=== PATIENT | male | born 1980 | race Hispanic/Latino ===

== ENCOUNTER 2020-02-06 09:08 | Emergency (ER) | payer SELFPAY ==
[2020-02-06] MEDS ORDERED: Iopamidol 370 76% 100 ML VIAL ONE (09:12)
[2020-02-06 10:14] LABS: #Lymphocytes 2.2 thou/uL (1.20-3.40); #Neutrophils 9.1 thou/uL (1.40-6.50); %Basophils 0.1 % (0.0-1.0); %Eosinophils 0.3 % (0.0-10.0); %Lymphocytes 17.5 % (21.0-51.0); %Monocytes 8.4 % (0.0-10.0); %Neutrophils 73.7 % (42.0-75.0); Hemoglobin 15.5 g/dL (14.0-18.0); Mean Corpuscular HGB CONC 35.6 g/dL (32.0-36.0); Mean Corpuscular Hemoglobin 32.2 pg (27.0-31.0); Mean Corpuscular Volume 90.4 fL (78.0-98.0); Mean Platelet Volume 7.5 fL (7.4-10.4); Platelet Count 290 thou/uL (130-400); RBC Distribution Width 11.8 % (11.5-14.5); Red Blood Cell (RBC) Count 4.83 mill/uL (4.70-6.10); White Blood Cell (WBC) Count 12.4 thou/uL (4.8-10.8)
[2020-02-06] MEDS ORDERED: Clindamycin/D5W 900 mg/50 ml Premix Bag ONE (10:16)
[2020-02-06] MEDS ORDERED: Fentanyl 100 MCG/2 ML VIAL ONE (10:16)
[2020-02-06] MEDS ORDERED: Ondansetron PF 4 MG/2 ML Vial ONE (10:16)
[2020-02-06] MEDS ORDERED: Dexamethasone 4 mg/ml Vial ONE (10:23)
[2020-02-06 10:41] LABS: ALT (SGPT) 36 U/L (8-55); AST (SGOT) 32 U/L (5-34); Alkaline Phosphatase 122 U/L (40-110); Anion Gap 16 mmol/L (10-20); BUN (Urea Nitrogen) 9 mg/dL (8.9-20.6); Bilirubin, Total 0.9 mg/dL (0.2-1.2); Calc. Creatinine Clearance 0 mL/min (70-130); Calcium 9.2 mg/dL (7.8-10.44); Carbon Dioxide 22 mmol/L (22-29); Chloride 99 mmol/L (98-107); Globulin 4.7 g/dL (2.4-3.5); Glucose 344 mg/dL (70-105); Potassium 3.9 mmol/L (3.5-5.1); Protein, Total 8.7 g/dL (6.0-8.3); Sodium 133 mmol/L (136-145)
--- NOTE | 2020-02-06 12:25 | CT ---
SOFT TISSUE NECK CT WITH CONTRAST: Date: 02/06/2020 HISTORY: Difficulty swallowing. Right tonsillar swelling. COMPARISON: None. FINDINGS: Visualized brain parenchyma does not demonstrate any abnormal enhancement. Adequate aeration of the ethmoid air cells. There is left maxillary sinus disease. There is sclerosis and opacification of the mastoid air cells, likely due to chronic process. Aerodigestive tract appears to be narrowed. There is asymmetric edema involving the posterior right n asopharynx, oral cavity, and hypopharynx. At the right tonsillar pillar, there is a 1.2 x 1.0 cm hypo dense lesion with incomplete peripheral enhancement. A developing right peritonsillar abscess is susp ected. Epiglottis has a normal caliber. Preepiglottic fat is preserved. The supraglottic, glottic, and subgl ottic larynx are unremarkable. No acute abnormality in the upper mediastinum and lung apices. Cervical spine vertebral body height is maintained. No fracture. Grossly, the great vessels of the neck are patent. There is an enlarged right Level II lymph node, presumed to be reactive, measuring 2.0 x 1.2 cm. Hay tional scattered mildly enlarged lymph nodes are noted in the right neck. Symmetric attenuation of the salivary glands. Unremarkable thyroid gland. IMPRESSION: 1. Right peritonsillar abscess. 2. Enlarged, presumed reactive right neck lymph nodes. POS: [facility]
== END 2020-02-06 14:20 | disposition home or self-care (01) ==
LOC: ERS 09:08
DX: J36 Peritonsillar abscess (principal); R59.9 Enlarged lymph nodes, unspecified; E11.65 Type 2 diabetes mellitus with hyperglycemia; F17.200 Nicotine dependence, unspecified, uncomplicated
CPT/HCPCS: 36416; 70491; 80053; 85025; 96365; 96375; J1100; J2405; J3010; J3490; Q9967

== ENCOUNTER 2023-07-21 13:57 | Emergency (ER) | payer SELFPAY ==
[2023-07-21 14:30] LABS: #Basophils 0.05 10x3/uL (0.0-0.2); %Basophils 0.5 % (0.0-1.0); %Eosinophils 3.3 % (0.0-10.0); %Lymphocytes 24.4 % (21.0-51.0); %Monocytes 6.5 % (0.0-10.0); Hematocrit 33.3 % (42.0-52.0); Hemoglobin 11.3 g/dL (14.0-18.0); Mean Corpuscular HGB CONC 33.9 g/dL (32.0-36.0); Mean Corpuscular Volume 85.6 fL (78.0-98.0); Mean Platelet Volume 9.8 fL (7.4-10.4); Platelet Count 582 10x3/uL (130-400); RBC Distribution Width 14.6 % (11.5-14.5); Red Blood Cell (RBC) Count 3.89 mill/uL (4.70-6.10)
[2023-07-21 14:44] LABS: ALT (SGPT) 21 U/L (8-55); AST (SGOT) 24 U/L (5-34); Albumin 2.9 g/dL (3.5-5.0); Alkaline Phosphatase 189 U/L (40-110); Anion Gap 14 mmol/L (10-20); BUN (Urea Nitrogen) 26 mg/dL (8.9-20.6); Bilirubin, Total 0.2 mg/dL (0.2-1.2); Calc. Creatinine Clearance 0 mL/min (70-130); Calcium 9.3 mg/dL (7.8-10.44); Carbon Dioxide 19 mmol/L (22-29); Chloride 101 mmol/L (98-107); Estimated GFR 45; Glucose 622 mg/dL (70-105); Potassium 4.5 mmol/L (3.5-5.1); Protein, Total 8.9 g/dL (6.0-8.3); Sodium 129 mmol/L (136-145)
[2023-07-21] MEDS ORDERED: HumaLOG 300 UNITS/3 ML VIAL ONE (15:31)
[2023-07-21] MEDS ORDERED: Insulin Regular, Human 100 UNIT/ML 10 ML VIAL ONE (15:38)
[2023-07-21 16:24] LABS: Bilirubin Negative (Negative); Blood, Urine 1+ (Negative); CAUTI Indications for Culture Dysuria,urgency,freq; Glucose, Urine (Dipstick) Greater than 1000 mg/dL (Negative); Ketone, Urine Negative (Negative); Leukocyte 500 Leu/uL (Negative); Nitrite Negative (Negative); Protein, Urine (Dipstick) 100 mg/dL (Neg-Trace); Specific Gravity, Urine 1.017 (1.002-1.036); Squamous Epithelial 0-3 HPF (0-3); Urobilinogen Normal mg/dL (Less than 2); WBC/HPF Greater than 50 HPF (0-3)
[2023-07-21 16:27] LABS: Bacteria/HPF 1+ HPF (None Seen); Clarity Cloudy (Clear)
[2023-07-21 16:29] LABS: Urine Culture Reflex Yes Yes
== END 2023-07-21 18:01 | disposition home or self-care (01) ==
LOC: ERS 13:57
DX: S40.812A Abrasion of left upper arm, initial encounter (principal); S40.811A Abrasion of right upper arm, initial encounter; S80.812A Abrasion, left lower leg, initial encounter; S80.811A Abrasion, right lower leg, initial encounter; E11.65 Type 2 diabetes mellitus with hyperglycemia; X58.XXXA Exposure to other specified factors, initial encounter; Z87.891 Personal history of nicotine dependence
CPT/HCPCS: 36415; 80053; 81001; 82010; 85025; 87077; 87086; 87186; 99284; J1815

== ENCOUNTER 2023-08-05 11:27 | Inpatient (IN) | payer MEDICARE, SELFPAY ==
[2023-08-05] MEDS ORDERED: Ketorolac Tromethamine 30 MG (1 mL) VIAL ONE (11:44)
[2023-08-05] MEDS ORDERED: Ondansetron PF 4 MG/2 ML Vial ONE (11:45)
[2023-08-05] MEDS ORDERED: cefTRIAXone (ROCEPHIN) 2 GM VIAL ONE (11:45)
[2023-08-05 12:52] LABS: Prothrombin Time 12.9 sec (12.0-14.7)
[2023-08-05 12:54] LABS: PTT 26.1 sec (22.9-36.1)
[2023-08-05 13:23] LABS: Bacteria/HPF 4+ HPF (None Seen); Bilirubin Negative (Negative); Blood, Urine 2+ (Negative); CAUTI Indications for Culture Pelvic or flank pain; Clarity Turbid (Clear); Glucose, Urine (Dipstick) 200 mg/dL (Negative); Ketone, Urine Negative (Negative); Leukocyte 500 Leu/uL (Negative); Nitrite Negative (Negative); Protein, Urine (Dipstick) 300 mg/dL (Neg-Trace); Specific Gravity, Urine 1.012 (1.002-1.036); Squamous Epithelial 0-3 HPF (0-3); Transitional Epithelial 0-3 HPF (None Seen); Urobilinogen Normal mg/dL (Less than 2); WBC/HPF Greater than 50 HPF (0-3)
[2023-08-05 13:28] LABS: Urine Culture Reflex Yes Yes
[2023-08-05 13:58] LABS: ALT (SGPT) 26 U/L (8-55); AST (SGOT) 26 U/L (5-34); Albumin 2.6 g/dL (3.5-5.0); Alkaline Phosphatase 117 U/L (40-110); Anion Gap 15 mmol/L (10-20); BUN (Urea Nitrogen) 27 mg/dL (8.9-20.6); Bilirubin, Total 0.3 mg/dL (0.2-1.2); Calc. Creatinine Clearance 0 mL/min (70-130); Calcium 8.1 mg/dL (7.8-10.44); Carbon Dioxide 15 mmol/L (22-29); Chloride 108 mmol/L (98-107); Estimated GFR 49; Globulin 5.2 g/dL (2.4-3.5); Glucose 234 mg/dL (70-105); Protein, Total 7.8 g/dL (6.0-8.3); Sodium 134 mmol/L (136-145)
[2023-08-05 14:06] LABS: Actual Bicarbonate (HCO3v) 17.7 mEq/L (22-28); Base Excess -6.8 mEq/L (-2.0 to +3.0); Chloride (VBG) 106 mmol/L (98-106); Hematocrit-VBG 33 % (42.0-52.0); Hemoglobin (Hb) 11.1 g/dL (13.2-17.3); Potassium (VBG) 4.01 mmol/L (3.70-5.30); Sodium 134 mmol/L (133-146); pH (venous) 7.361 (7.32-7.43)
[2023-08-05] MEDS ORDERED: Acetaminophen 500 MG TAB ONE (14:11)
[2023-08-05] MEDS ORDERED: Acetaminophen 650 MG Suppository PR PRN (15:57)
[2023-08-05] MEDS ORDERED: Dextrose 5% in Water 1,000 ML IV PRN (15:59)
[2023-08-05] MEDS ORDERED: Glucagon 1 MG/ML KIT IM PRN (15:59)
[2023-08-05] MEDS ORDERED: Dextrose 50% Abboject 50 ML SYRINGE SLOW IVP PRN (15:59)
[2023-08-05] MEDS ORDERED: HYDROmorphone 0.5 MG/0.5 ML SYRINGE ONE (16:11)
[2023-08-05 16:38] LABS: #Basophils 0.03 10x3/uL (0.0-0.2); %Basophils 0.2 % (0.0-1.0); %Eosinophils 0.2 % (0.0-10.0); %Monocytes 3.6 % (0.0-10.0); %Neutrophils 83.4 % (42.0-75.0); Hematocrit 30.1 % (42.0-52.0); Hemoglobin 10.1 g/dL (14.0-18.0); Mean Corpuscular HGB CONC 33.6 g/dL (32.0-36.0); Mean Corpuscular Hemoglobin 28.3 pg (27.0-31.0); Mean Corpuscular Volume 84.3 fL (78.0-98.0); Mean Platelet Volume 9.7 fL (7.4-10.4); Platelet Count 241 10x3/uL (130-400); RBC Distribution Width 15.7 % (11.5-14.5); Red Blood Cell (RBC) Count 3.57 mill/uL (4.70-6.10)
[2023-08-05 16:54] LABS: Lactic Acid 1.7 mmol/L (0.5-2.2)
[2023-08-05 17:33] VITALS: BMI 20.9
[2023-08-05] MEDS: Sodium Chloride 0.9% 1,000 ML IV SCH (18:10)
[2023-08-05] MEDS: Insulin NPH Human Isophane 100 UNITS/ML (10 ML VIAL) SC SCH (18:47)
[2023-08-05] MEDS: HYDROcodone/Acetaminophen 5/325 mg Tablet PO PRN (20:28)
[2023-08-05] MEDS: Heparin 5,000 UNITS/ML VIAL SC SCH (20:29)
[2023-08-05 23:49] LABS: Chlam.trachomatis by PCR,Urine Not Detected (NotDetected); GC N.gonorrhoeae PCR,UrineVOID Not Detected (NotDetected)
[2023-08-06 06:00] LABS: Lactic Acid 1.5 mmol/L (0.5-2.2)
[2023-08-06 06:07] LABS: Anion Gap 13 mmol/L (10-20); BUN (Urea Nitrogen) 32 mg/dL (8.9-20.6); Calc. Creatinine Clearance 38 mL/min (70-130); Carbon Dioxide 15 mmol/L (22-29); Chloride 110 mmol/L (98-107); Estimated GFR 33; Glucose 164 mg/dL (70-105); Potassium 4.4 mmol/L (3.5-5.1); Sodium 134 mmol/L (136-145)
[2023-08-06 06:15] LABS: Hematocrit 28.3 % (42.0-52.0); Hemoglobin 9.4 g/dL (14.0-18.0); Mean Corpuscular HGB CONC 33.2 g/dL (32.0-36.0); Mean Corpuscular Hemoglobin 28.9 pg (27.0-31.0); Mean Corpuscular Volume 87.1 fL (78.0-98.0); Mean Platelet Volume 10.5 fL (7.4-10.4); Platelet Count 216 10x3/uL (130-400); RBC Distribution Width 15.9 % (11.5-14.5); Red Blood Cell (RBC) Count 3.25 mill/uL (4.70-6.10)
[2023-08-06 07:16] LABS: Band 39 % (5-11); Eosinophils 1 % (0-10); Lymphocytes 4 % (21-51); Macrocytosis SLIGHT = 6-15 cells HPF (0-5); Monocytes 4 % (0-10); Neutrophil 53 % (42-75); Platelet Adequacy Comment Platelets Normal; Polychromasia SLIGHT = 2-3 cells HPF (0-2)
[2023-08-06] MEDS ORDERED: Cefepime 2 GM in Sodium Chloride 0.9% 100 ML IVPB SCH (09:00)
[2023-08-06] MEDS: Meropenem 1 GM in Sodium Chloride 0.9% 100 ML IVPB SCH ×2 (09:47→20:40)
[2023-08-06] MEDS: Ondansetron PF 4 MG/2 ML Vial IVP PRN (14:19)
[2023-08-06] MEDS ORDERED: cefTRIAXone\\ROCEPHIN 2 GM in Sodium Chloride 0.9% 100 ML IVPB SCH (16:00)
[2023-08-06 20:33] LABS: Anion Gap 12 mmol/L (10-20); BUN (Urea Nitrogen) 32 mg/dL (8.9-20.6); Calc. Creatinine Clearance 44 mL/min (70-130); Calcium 8.1 mg/dL (7.8-10.44); Carbon Dioxide 15 mmol/L (22-29); Chloride 109 mmol/L (98-107); Estimated GFR 40; Glucose 89 mg/dL (70-105); Potassium 4.2 mmol/L (3.5-5.1); Sodium 132 mmol/L (136-145)
[2023-08-07 10:12] LABS: #Basophils 0.07 10x3/uL (0.0-0.2); %Basophils 0.3 % (0.0-1.0); %Eosinophils 0.5 % (0.0-10.0); %Lymphocytes 13.6 % (21.0-51.0); %Monocytes 6.4 % (0.0-10.0); Hemoglobin 9.4 g/dL (14.0-18.0); Mean Corpuscular HGB CONC 33.6 g/dL (32.0-36.0); Mean Corpuscular Hemoglobin 28.3 pg (27.0-31.0); Mean Corpuscular Volume 84.3 fL (78.0-98.0); Mean Platelet Volume 10.1 fL (7.4-10.4); Platelet Count 226 10x3/uL (130-400); Red Blood Cell (RBC) Count 3.32 mill/uL (4.70-6.10)
[2023-08-07 10:31] LABS: Phosphorus 2.8 mg/dL (2.3-4.7)
[2023-08-07 10:32] LABS: Anion Gap 13 mmol/L (10-20); BUN (Urea Nitrogen) 28 mg/dL (8.9-20.6); Calc. Creatinine Clearance 54 mL/min (70-130); Calcium 8.3 mg/dL (7.8-10.44); Carbon Dioxide 16 mmol/L (22-29); Chloride 110 mmol/L (98-107); Estimated GFR 51; Glucose 81 mg/dL (70-105); Magnesium 1.6 mg/dL (1.6-2.6); Potassium 4.1 mmol/L (3.5-5.1); Sodium 135 mmol/L (136-145)
[2023-08-07] MEDS ORDERED: Insulin NPH Human Isophane 100 UNITS/ML (10 ML VIAL) SC SCH (11:30)
[2023-08-07] MEDS: Metoclopramide HCl 10 MG (2 mL) VIAL IVP SCH (17:33)
[2023-08-07] MEDS: Meropenem 1 GM in Sodium Chloride 0.9% 100 ML IVPB SCH (20:21)
[2023-08-07] MEDS: HumaLOG 300 UNITS/3 ML VIAL SC PRN (21:19)
[2023-08-08 07:53] LABS: #Basophils 0.05 10x3/uL (0.0-0.2); %Basophils 0.3 % (0.0-1.0); %Eosinophils 1.6 % (0.0-10.0); %Lymphocytes 20.6 % (21.0-51.0); %Monocytes 6.4 % (0.0-10.0); %Neutrophils 70.6 % (42.0-75.0); Hematocrit 26.8 % (42.0-52.0); Hemoglobin 8.9 g/dL (14.0-18.0); Mean Corpuscular HGB CONC 33.2 g/dL (32.0-36.0); Mean Corpuscular Hemoglobin 28.9 pg (27.0-31.0); Mean Platelet Volume 10.2 fL (7.4-10.4); Platelet Count 232 10x3/uL (130-400); RBC Distribution Width 15.9 % (11.5-14.5); Red Blood Cell (RBC) Count 3.08 mill/uL (4.70-6.10)
[2023-08-08 07:54] LABS: Anion Gap 10 mmol/L (10-20); BUN (Urea Nitrogen) 21 mg/dL (8.9-20.6); Calc. Creatinine Clearance 57 mL/min (70-130); Calcium 8.1 mg/dL (7.8-10.44); Carbon Dioxide 18 mmol/L (22-29); Chloride 108 mmol/L (98-107); Estimated GFR 55; Glucose 218 mg/dL (70-105); Potassium 4.3 mmol/L (3.5-5.1); Sodium 132 mmol/L (136-145)
[2023-08-08] MEDS: Insulin Glargine 30 UNITS/0.3 ML VIAL SC SCH (08:24)
[2023-08-08] MEDS ORDERED: Metoclopramide HCl 10 MG (2 mL) VIAL IVP PRN (15:41)
[2023-08-08 16:51] LABS: Bacteria/HPF None Seen HPF (None Seen); Bilirubin Negative (Negative); Blood, Urine 1+ (Negative); Clarity Clear (Clear); Glucose, Urine (Dipstick) 30 mg/dL (Negative); Ketone, Urine Negative (Negative); Leukocyte 250 Leu/uL (Negative); Nitrite Negative (Negative); Protein, Urine (Dipstick) 50 mg/dL (Neg-Trace); Specific Gravity, Urine 1.008 (1.002-1.036); Squamous Epithelial 0-3 HPF (0-3); Urobilinogen Normal mg/dL (Less than 2); WBC/HPF 21-50 HPF (0-3); Yeast-Hyphae Rare HPF (None Seen); pH, Urine 5.5 (5.0-9.0)
[2023-08-08 17:17] LABS: Yeast-Budding Rare HPF (None Seen)
[2023-08-08 17:39] LABS: Creatinine, Urine 32.81 mg/dL (63-166)
[2023-08-09 05:30] LABS: #Basophils 0.04 10x3/uL (0.0-0.2); %Basophils 0.3 % (0.0-1.0); %Eosinophils 3.3 % (0.0-10.0); %Lymphocytes 22.1 % (21.0-51.0); %Monocytes 9.2 % (0.0-10.0); %Neutrophils 64.6 % (42.0-75.0); Hematocrit 26.6 % (42.0-52.0); Mean Corpuscular HGB CONC 33.8 g/dL (32.0-36.0); Mean Corpuscular Hemoglobin 29.2 pg (27.0-31.0); Mean Corpuscular Volume 86.4 fL (78.0-98.0); Mean Platelet Volume 9.8 fL (7.4-10.4); Platelet Count 228 10x3/uL (130-400); RBC Distribution Width 15.9 % (11.5-14.5); Red Blood Cell (RBC) Count 3.08 mill/uL (4.70-6.10)
[2023-08-09 06:03] LABS: Anion Gap 9 mmol/L (10-20); BUN (Urea Nitrogen) 16 mg/dL (8.9-20.6); Calc. Creatinine Clearance 62 mL/min (70-130); Calcium 8.4 mg/dL (7.8-10.44); Carbon Dioxide 19 mmol/L (22-29); Chloride 110 mmol/L (98-107); Estimated GFR 60; Glucose 119 mg/dL (70-105); Potassium 4.2 mmol/L (3.5-5.1); Sodium 134 mmol/L (136-145)
[2023-08-09] MEDS: Lisinopril 5 MG TAB PO SCH (09:17)
[2023-08-09] MEDS: Insulin Glargine 30 UNITS/0.3 ML VIAL SC SCH (09:19)
[2023-08-09] MEDS: HYDROcodone/Acetaminophen 5/325 mg Tablet PO PRN (09:37)
[2023-08-10 05:48] LABS: #Basophils 0.05 10x3/uL (0.0-0.2); %Basophils 0.5 % (0.0-1.0); %Lymphocytes 32.2 % (21.0-51.0); %Monocytes 11.7 % (0.0-10.0); %Neutrophils 50.3 % (42.0-75.0); Hematocrit 26.9 % (42.0-52.0); Mean Corpuscular HGB CONC 33.5 g/dL (32.0-36.0); Mean Corpuscular Hemoglobin 27.5 pg (27.0-31.0); Mean Corpuscular Volume 82.3 fL (78.0-98.0); Mean Platelet Volume 9.7 fL (7.4-10.4); Platelet Count 264 10x3/uL (130-400); RBC Distribution Width 15.5 % (11.5-14.5); Red Blood Cell (RBC) Count 3.27 mill/uL (4.70-6.10)
[2023-08-10 06:05] LABS: Anion Gap 12 mmol/L (10-20); BUN (Urea Nitrogen) 13 mg/dL (8.9-20.6); Calc. Creatinine Clearance 80 mL/min (70-130); Calcium 8.4 mg/dL (7.8-10.44); Carbon Dioxide 22 mmol/L (22-29); Chloride 106 mmol/L (98-107); Estimated GFR 82; Glucose 140 mg/dL (70-105); Potassium 3.9 mmol/L (3.5-5.1); Sodium 136 mmol/L (136-145)
[2023-08-10] MEDS: Insulin Glargine 30 UNITS/0.3 ML VIAL SC SCH (09:10)
[2023-08-10] MEDS: Lisinopril 5 MG TAB PO SCH (09:10)
[2023-08-10] MEDS: Ondansetron ODT 4 MG TAB PO PRN (20:29)
[2023-08-11] MEDS: Acetaminophen 325 MG TAB PO PRN (05:06)
[2023-08-11] MEDS ORDERED: Lisinopril 5 MG TAB PO SCH (07:35)
[2023-08-11] MEDS: Lisinopril 20 MG TAB PO SCH (08:15)
[2023-08-11] MEDS: Insulin Glargine 30 UNITS/0.3 ML VIAL SC SCH (08:16)
[2023-08-11] MEDS ORDERED: Lidocaine 1% PF 5 ML VIAL ONE (10:33)
[2023-08-11] MEDS ORDERED: Sodium Bicarbonate 2.5 MEQ/5 ML SDV ONE (10:33)
[2023-08-11] MEDS ORDERED: Benzonatate 100 MG CAP PO PRN (15:09)
[2023-08-11] MEDS ORDERED: Sodium Chloride 0.65% Nasal 44 ML BOT EA NARE PRN (15:09)
[2023-08-11] MEDS ORDERED: Loratadine 10 MG TAB PO PRN (15:09)
[2023-08-11] MEDS ORDERED: Moisturizing Cream (Eucerin) 113 GM JAR TOP PRN (15:09)
[2023-08-11] MEDS ORDERED: Artificial Tear Ophth Sol 15 ML BOT EA EYE PRN (15:09)
[2023-08-11] MEDS ORDERED: Benzocaine/Menthol 1 LOZ LOZ PO PRN (15:09)
[2023-08-11] MEDS: Loperamide HCl 2 MG CAP PO PRN (16:08)
[2023-08-12] MEDS: Loperamide HCl 2 MG CAP PO PRN (03:37)
[2023-08-12 08:35] LABS: #Basophils 0.04 10x3/uL (0.0-0.2); %Basophils 0.5 % (0.0-1.0); %Eosinophils 7.6 % (0.0-10.0); %Lymphocytes 46.2 % (21.0-51.0); %Monocytes 11.5 % (0.0-10.0); Hematocrit 27.4 % (42.0-52.0); Hemoglobin 9.2 g/dL (14.0-18.0); Mean Corpuscular HGB CONC 33.6 g/dL (32.0-36.0); Mean Corpuscular Hemoglobin 27.9 pg (27.0-31.0); Mean Platelet Volume 9.3 fL (7.4-10.4); Platelet Count 429 10x3/uL (130-400); RBC Distribution Width 15.6 % (11.5-14.5)
[2023-08-12] MEDS: Floranex 1 GM Packet PO SCH (08:46)
[2023-08-12 08:55] LABS: Anion Gap 11 mmol/L (10-20); BUN (Urea Nitrogen) 10 mg/dL (8.9-20.6); Calc. Creatinine Clearance 86 mL/min (70-130); Calcium 8.2 mg/dL (7.8-10.44); Carbon Dioxide 24 mmol/L (22-29); Chloride 106 mmol/L (98-107); Estimated GFR 90; Glucose 99 mg/dL (70-105); Potassium 3.6 mmol/L (3.5-5.1); Sodium 137 mmol/L (136-145)
[2023-08-12 09:41] VITALS: BMI 20.9
[2023-08-12 10:30] VITALS: BP 178/97; TEMP 97.9
== END 2023-08-12 17:10 | disposition home or self-care (01) | DRG 872 ==
LOC: ERS 11:27 → SUATTDRO 11:27 → SURG B 15:56 → OBSVTOIN 15:56
PROVIDERS: ADMIT Family Medicine; ATTEND Internal Medicine
PROC: 3E03329 Introduction of Other Anti-infective into Peripheral Vein, Percutaneous Approach (ICD-10-PCS; 2023-08-05)
PROC: 02HV33Z Insertion of Infusion Device into Superior Vena Cava, Percutaneous Approach (ICD-10-PCS; principal; 2023-08-11)
DX: A41.51 Sepsis due to Escherichia coli [E. coli] (principal); N17.9 Acute kidney failure, unspecified; Z16.12 Extended spectrum beta lactamase (ESBL) resistance; N10 Acute pyelonephritis; E10.22 Type 1 diabetes mellitus with diabetic chronic kidney disease; Z98.890 Other specified postprocedural states; Z79.01 Long term (current) use of anticoagulants; Z79.4 Long term (current) use of insulin; Z89.431 Acquired absence of right foot; Z87.891 Personal history of nicotine dependence
CPT/HCPCS: 36415; 36416; 36569; 74176; 76937; 77001; 80048; 80053; 81001; 82010; 82570; 82805; 83605; 83735; 84100; 84145; 84156; 85025; 85610; 85730; 87040; 87077; 87086; 87149; 87186; 87491; 87591; 93005; 94760; 96374; 96375; C1751; J0696; J1170; J1644; J1815; J1885; J2185; J2405; J2765; J3490; J7050; Q0162

== ENCOUNTER 2024-02-23 18:26 | Inpatient (IN) | payer MEDICARE ==
[2024-02-23 19:20] LABS: #Basophils 0.03 10x3/uL (0.0-0.2); %Basophils 0.3 % (0.0-1.0); %Eosinophils 0.8 % (0.0-10.0); %Lymphocytes 27.6 % (21.0-51.0); %Monocytes 9.4 % (0.0-10.0); %Neutrophils 61.6 % (42.0-75.0); Hematocrit 28.3 % (42.0-52.0); Hemoglobin 9.8 g/dL (14.0-18.0); Mean Corpuscular HGB CONC 34.6 g/dL (32.0-36.0); Mean Corpuscular Hemoglobin 28.5 pg (27.0-31.0); Mean Corpuscular Volume 82.3 fL (78.0-98.0); Mean Platelet Volume 9.9 fL (7.4-10.4); Platelet Count 372 10x3/uL (130-400); RBC Distribution Width 14.2 % (11.5-14.5); Red Blood Cell (RBC) Count 3.44 mill/uL (4.70-6.10)
[2024-02-23 19:51] LABS: ALT (SGPT) 26 U/L (8-55); AST (SGOT) 23 U/L (5-34); Albumin 2.7 g/dL (3.5-5.0); Alkaline Phosphatase 167 U/L (40-110); Anion Gap 12 mmol/L (10-20); BUN (Urea Nitrogen) 30 mg/dL (8.9-20.6); Bilirubin, Total 0.2 mg/dL (0.2-1.2); Calc. Creatinine Clearance 0 mL/min (70-130); Calcium 8.2 mg/dL (7.8-10.44); Carbon Dioxide 15 mmol/L (22-29); Chloride 110 mmol/L (98-107); Estimated GFR 51; Globulin 5.2 g/dL (2.4-3.5); Glucose 348 mg/dL (70-105); Lipase 100 U/L (8-78); Magnesium 1.9 mg/dL (1.6-2.6); Potassium 4.2 mmol/L (3.5-5.1); Protein, Total 7.9 g/dL (6.0-8.3); Sodium 133 mmol/L (136-145)
[2024-02-23] MEDS ORDERED: fentaNYL 50 mcg/mL 1 mL Vial ONE (20:13)
[2024-02-23] MEDS ORDERED: traMADol HCl 50 MG TAB PO PRN (20:49)
[2024-02-23] MEDS ORDERED: Acetaminophen 650 MG Suppository PR PRN (20:49)
[2024-02-23] MEDS ORDERED: Vancomycin 1 GM/200 ML (FROZEN) BAG ONE (20:50)
[2024-02-23] MEDS ORDERED: Dextrose 50% Abboject 50 ML SYRINGE SLOW IVP PRN (20:52)
[2024-02-23] MEDS ORDERED: Dextrose 5% in Water 1,000 ML IV PRN (20:52)
[2024-02-23] MEDS ORDERED: Glucagon 1 MG/ML KIT IM PRN (20:52)
[2024-02-23] MEDS ORDERED: Vancomycin 1 GM in Sodium Chloride 0.9% 250 ML 250 ML IVPB SCH (21:00)
[2024-02-23 21:03] LABS: Bacteria/HPF None Seen HPF (None Seen); Bilirubin Negative (Negative); Blood, Urine Trace (Negative); CAUTI Indications for Culture Pelvic or flank pain; Clarity Clear (Clear); Glucose, Urine (Dipstick) Greater than 1000 mg/dL (Negative); Ketone, Urine Negative (Negative); Leukocyte Negative Leu/uL (Negative); Nitrite Negative (Negative); Protein, Urine (Dipstick) 100 mg/dL (Neg-Trace); RBC/HPF 0-3 HPF (0-3); Specific Gravity, Urine 1.011 (1.002-1.036); Squamous Epithelial 0-3 HPF (0-3); Urobilinogen Normal mg/dL (Less than 2); WBC/HPF 0-3 HPF (0-3)
[2024-02-23 21:04] LABS: Urine Culture Reflex No No
[2024-02-23] MEDS: traMADol HCl 50 MG TAB PO PRN (21:47)
[2024-02-23] MEDS: Insulin Glargine 30 UNITS/0.3 ML VIAL SC SCH (21:49)
[2024-02-23] MEDS: Heparin 5,000 UNITS/ML VIAL SC SCH (21:49)
[2024-02-23] MEDS: Insulin Lispro 100 UNIT/ML 10 ML VIAL SC PRN (21:50)
[2024-02-23 22:48] VITALS: BMI 19.5
[2024-02-23] MEDS: Acetaminophen 325 MG TAB PO PRN (23:16)
[2024-02-23] MEDS: Vancomycin HCl 500 MG in Sodium Chloride 0.9% 100 ML IVPB SCH (23:18)
[2024-02-24 05:29] LABS: Hemoglobin A1c 7.2 % (4.0-6.0)
[2024-02-24 05:34] LABS: #Basophils 0.05 10x3/uL (0.0-0.2); %Basophils 0.4 % (0.0-1.0); %Lymphocytes 30.9 % (21.0-51.0); %Monocytes 10.2 % (0.0-10.0); %Neutrophils 56.1 % (42.0-75.0); Hematocrit 26.6 % (42.0-52.0); Hemoglobin 9.1 g/dL (14.0-18.0); Mean Corpuscular HGB CONC 34.2 g/dL (32.0-36.0); Mean Corpuscular Hemoglobin 28.1 pg (27.0-31.0); Mean Corpuscular Volume 82.1 fL (78.0-98.0); Mean Platelet Volume 10.2 fL (7.4-10.4); Platelet Count 351 10x3/uL (130-400); RBC Distribution Width 13.9 % (11.5-14.5); Red Blood Cell (RBC) Count 3.24 mill/uL (4.70-6.10)
[2024-02-24 05:43] LABS: ALT (SGPT) 24 U/L (8-55); AST (SGOT) 24 U/L (5-34); Albumin 2.5 g/dL (3.5-5.0); Alkaline Phosphatase 144 U/L (40-110); Anion Gap 11 mmol/L (10-20); BUN (Urea Nitrogen) 26 mg/dL (8.9-20.6); Bilirubin, Total 0.2 mg/dL (0.2-1.2); Calc. Creatinine Clearance 54 mL/min (70-130); Calcium 8.1 mg/dL (7.8-10.44); Carbon Dioxide 18 mmol/L (22-29); Chloride 109 mmol/L (98-107); Estimated GFR 55; Globulin 4.7 g/dL (2.4-3.5); Glucose 77 mg/dL (70-105); Potassium 3.3 mmol/L (3.5-5.1); Protein, Total 7.2 g/dL (6.0-8.3); Sodium 135 mmol/L (136-145)
[2024-02-24 05:44] LABS: Vancomycin, Random 21.7 ug/mL (See Comment)
[2024-02-24] MEDS ORDERED: Electrolyte Replacement Protocol 1 EACH FS SCH (08:42)
[2024-02-24] MEDS: Magnesium 2 GM/50 ML(in water) 2 GM in Premix 1 BAG IVPB SCH (09:29)
[2024-02-24] MEDS: Potassium Chloride 20 MEQ TAB PO SCH (09:30)
[2024-02-24] MEDS: Lisinopril 10 MG TAB PO SCH (09:35)
[2024-02-24] MEDS ORDERED: Glycopyrrolate 0.2 MG/ML 5 ML SYRINGE ONE ×2 (09:57→13:04)
[2024-02-24] MEDS ORDERED: Lidocaine 1% PF 5 ML VIAL ONE (09:57)
[2024-02-24] MEDS ORDERED: PHENYLEPHRINE-NS 100 MCG/ML 10 ML SYRINGE ONE ×4 (09:57→14:33)
[2024-02-24] MEDS ORDERED: Dexamethasone 20 MG/5 ML VIAL ONE (09:57)
[2024-02-24] MEDS ORDERED: fentaNYL PF 100 MCG/2 ML SYRINGE ONE (09:57)
[2024-02-24] MEDS ORDERED: Ondansetron PF 4 MG/2 ML Vial ONE (09:57)
[2024-02-24] MEDS ORDERED: PROPOFOL 20 ML ONE (09:57)
[2024-02-24] MEDS ORDERED: Midazolam HCl 2 mg/2 ml Vial ONE ×2 (09:57→13:00)
[2024-02-24] MEDS: HYDROcodone/Acetaminophen 7.5/325 mg Tablet PO PRN ×2 (09:59→17:05)
[2024-02-24] MEDS ORDERED: Bupivacaine PF 0.5% 30 ML VIAL ONE (12:49)
[2024-02-24] MEDS ORDERED: Bacitracin Zinc Ointment 30 gm TUBE ONE (12:49)
[2024-02-24] MEDS ORDERED: Thrombin 5000 UNITS/5 ML VIAL ONE (14:09)
[2024-02-24] MEDS ORDERED: Vancomycin 1 GM VIAL ONE (14:18)
[2024-02-24] MEDS ORDERED: fentaNYL 50 mcg/mL 1 mL Vial ONE (15:05)
[2024-02-24 15:24] VITALS: BMI 19.5
[2024-02-24] MEDS: Ketorolac Tromethamine 30 MG (1 mL) VIAL IVP SCH (15:45)
[2024-02-24] MEDS: Insulin Glargine 30 UNITS/0.3 ML VIAL SC SCH (19:29)
[2024-02-24] MEDS: HumuLIN 70/30 100 Unit/ml 10 ml Vial SC SCH (21:32)
[2024-02-24] MEDS: VANCOMYCIN 1.25 GM/250 ML BAG 1.25 GM in Premix 1 BAG IVPB SCH (21:32)
[2024-02-25] MEDS: Ondansetron PF 4 MG/2 ML Vial IVP PRN (00:09)
[2024-02-25 04:52] LABS: #Basophils Less than 0.03 10x3/uL (0.0-0.2); #Eosinophils Less than 0.03 10x3/uL (0.0-0.7); %Basophils 0.1 % (0.0-1.0); %Lymphocytes 12.7 % (21.0-51.0); %Monocytes 4.2 % (0.0-10.0); %Neutrophils 82.6 % (42.0-75.0); Hematocrit 27.6 % (42.0-52.0); Hemoglobin 9.2 g/dL (14.0-18.0); Mean Corpuscular HGB CONC 33.3 g/dL (32.0-36.0); Mean Corpuscular Hemoglobin 28.1 pg (27.0-31.0); Mean Corpuscular Volume 84.4 fL (78.0-98.0); Mean Platelet Volume 9.9 fL (7.4-10.4); Platelet Count 385 10x3/uL (130-400); Red Blood Cell (RBC) Count 3.27 mill/uL (4.70-6.10)
[2024-02-25 05:07] LABS: CRP,High Sensitivity (Inhouse) 9.33 mg/dL (< or = 0.5)
[2024-02-25 05:22] LABS: Anion Gap 12 mmol/L (10-20); BUN (Urea Nitrogen) 26 mg/dL (8.9-20.6); Calc. Creatinine Clearance 45 mL/min (70-130); Carbon Dioxide 15 mmol/L (22-29); Chloride 104 mmol/L (98-107); Estimated GFR 45; Glucose 525 mg/dL (70-105); Potassium 5.5 mmol/L (3.5-5.1); Sodium 125 mmol/L (136-145)
[2024-02-25] MEDS: Insulin Regular, Human 100 UNIT/ML 10 ML VIAL IVP SCH (05:50)
[2024-02-25] MEDS: HYDROcodone/Acetaminophen 7.5/325 mg Tablet PO PRN (10:40)
[2024-02-25] MEDS: Insulin Lispro 100 UNIT/ML 10 ML VIAL SC PRN ×2 (11:40→21:49)
[2024-02-25] MEDS: Meperidine HCl/PF 25 MG (1 mL) VIAL IM PRN (11:52)
[2024-02-25] MEDS: Promethazine HCl 25 MG/ML VIAL IM PRN (11:52)
[2024-02-25] MEDS: LOKELMA 10 GM PACKET PO SCH (15:19)
[2024-02-25] MEDS: Sodium Chloride 0.9% 1,000 ML IV SCH (16:45)
[2024-02-25] MEDS: Vancomycin 1 GM in Premix 1 BAG IVPB SCH (20:48)
[2024-02-26 05:53] LABS: #Basophils 0.05 10x3/uL (0.0-0.2); %Basophils 0.5 % (0.0-1.0); %Lymphocytes 41.8 % (21.0-51.0); %Monocytes 6.6 % (0.0-10.0); %Neutrophils 48.8 % (42.0-75.0); Hematocrit 24.1 % (42.0-52.0); Hemoglobin 7.9 g/dL (14.0-18.0); Mean Corpuscular HGB CONC 32.8 g/dL (32.0-36.0); Mean Corpuscular Hemoglobin 27.6 pg (27.0-31.0); Mean Corpuscular Volume 84.3 fL (78.0-98.0); Mean Platelet Volume 10.1 fL (7.4-10.4); Platelet Count 386 10x3/uL (130-400); RBC Distribution Width 14.2 % (11.5-14.5); Red Blood Cell (RBC) Count 2.86 mill/uL (4.70-6.10)
[2024-02-26 06:11] LABS: Anion Gap 9 mmol/L (10-20); BUN (Urea Nitrogen) 30 mg/dL (8.9-20.6); Calc. Creatinine Clearance 48 mL/min (70-130); Calcium 7.9 mg/dL (7.8-10.44); Carbon Dioxide 17 mmol/L (22-29); Chloride 112 mmol/L (98-107); Estimated GFR 48; Glucose 222 mg/dL (70-105); Potassium 4.3 mmol/L (3.5-5.1); Sodium 134 mmol/L (136-145)
[2024-02-26 07:11] LABS: Vancomycin, Random 29.2 ug/mL (See Comment)
[2024-02-26] MEDS ORDERED: Electrolyte Replacement Protocol FS PRN (14:00)
[2024-02-27 05:45] LABS: #Basophils 0.06 10x3/uL (0.0-0.2); %Basophils 0.7 % (0.0-1.0); %Eosinophils 4.8 % (0.0-10.0); %Lymphocytes 51.3 % (21.0-51.0); %Monocytes 6.8 % (0.0-10.0); %Neutrophils 36.2 % (42.0-75.0); Hematocrit 25.8 % (42.0-52.0); Hemoglobin 8.4 g/dL (14.0-18.0); Mean Corpuscular HGB CONC 32.6 g/dL (32.0-36.0); Mean Corpuscular Hemoglobin 28.5 pg (27.0-31.0); Mean Corpuscular Volume 87.5 fL (78.0-98.0); Mean Platelet Volume 10.1 fL (7.4-10.4); Platelet Count 411 10x3/uL (130-400); RBC Distribution Width 14.5 % (11.5-14.5); Red Blood Cell (RBC) Count 2.95 mill/uL (4.70-6.10)
[2024-02-27 06:03] LABS: Anion Gap 10 mmol/L (10-20); BUN (Urea Nitrogen) 26 mg/dL (8.9-20.6); Calc. Creatinine Clearance 57 mL/min (70-130); Calcium 8.3 mg/dL (7.8-10.44); Carbon Dioxide 18 mmol/L (22-29); Chloride 114 mmol/L (98-107); Estimated GFR 59; Glucose 100 mg/dL (70-105); Potassium 4.5 mmol/L (3.5-5.1); Sodium 137 mmol/L (136-145)
[2024-02-27] MEDS: CEFAZOLIN 2 GM in Sodium Chloride 0.9% 100 ML IVPB SCH (15:20)
[2024-02-28 04:55] LABS: #Basophils 0.05 10x3/uL (0.0-0.2); %Basophils 0.7 % (0.0-1.0); %Eosinophils 5.3 % (0.0-10.0); %Lymphocytes 46.8 % (21.0-51.0); %Neutrophils 39.9 % (42.0-75.0); Hematocrit 27.7 % (42.0-52.0); Hemoglobin 9.1 g/dL (14.0-18.0); Mean Corpuscular HGB CONC 32.9 g/dL (32.0-36.0); Mean Corpuscular Hemoglobin 27.9 pg (27.0-31.0); Mean Platelet Volume 9.4 fL (7.4-10.4); Platelet Count 462 10x3/uL (130-400); RBC Distribution Width 14.2 % (11.5-14.5); Red Blood Cell (RBC) Count 3.26 mill/uL (4.70-6.10)
[2024-02-28 05:18] LABS: Anion Gap 9 mmol/L (10-20); BUN (Urea Nitrogen) 22 mg/dL (8.9-20.6); Calc. Creatinine Clearance 56 mL/min (70-130); Calcium 8.6 mg/dL (7.8-10.44); Carbon Dioxide 22 mmol/L (22-29); Chloride 112 mmol/L (98-107); Estimated GFR 58; Glucose 209 mg/dL (70-105); Potassium 4.8 mmol/L (3.5-5.1); Sodium 138 mmol/L (136-145)
[2024-02-28] MEDS ORDERED: Morphine 4 MG/ML VIAL SLOW IVP SCH (08:45)
[2024-02-28] MEDS: HYDROcodone/Acetaminophen 10/325 mg Tablet PO SCH (09:35)
[2024-02-28] MEDS: hydrALAZINE 20 MG/ML VIAL SLOW IVP SCH (09:47)
[2024-02-28] MEDS ORDERED: Sodium Chloride 0.9% 100 ML ONE (14:52)
[2024-02-28] MEDS ORDERED: CEFAZOLIN 2 GM VIAL ONE (14:52)
[2024-02-28] MEDS ORDERED: Dexamethasone 4 mg/ml Vial ONE (16:23)
[2024-02-28] MEDS ORDERED: PROPOFOL 40 ML ONE (16:23)
[2024-02-28] MEDS ORDERED: fentaNYL PF 100 MCG/2 ML SYRINGE ONE (16:23)
[2024-02-28] MEDS ORDERED: Ondansetron PF 4 MG/2 ML Vial ONE (16:23)
[2024-02-28] MEDS ORDERED: Lidocaine 1% PF 5 ML VIAL ONE (16:23)
[2024-02-28] MEDS ORDERED: fentaNYL 50 mcg/mL 1 mL Vial ONE (16:55)
[2024-02-28] MEDS ORDERED: Bupivacaine PF 0.5% 30 ML VIAL ONE (17:07)
[2024-02-28] MEDS ORDERED: Bacitracin Zinc Ointment 30 gm TUBE ONE (17:07)
[2024-02-28] MEDS ORDERED: Meperidine HCl/PF 25 MG (1 mL) VIAL IM PRN (17:34)
[2024-02-28] MEDS ORDERED: PHENYLEPHRINE-NS 100 MCG/ML 10 ML SYRINGE ONE (18:02)
[2024-02-28] MEDS ORDERED: Mineral Oil Sterile 10 ML VIAL ONE (18:03)
[2024-02-29 04:30] LABS: #Basophils 0.03 10x3/uL (0.0-0.2); %Basophils 0.3 % (0.0-1.0); %Eosinophils 0.4 % (0.0-10.0); %Lymphocytes 25.1 % (21.0-51.0); %Monocytes 3.5 % (0.0-10.0); %Neutrophils 70.4 % (42.0-75.0); Hematocrit 29.4 % (42.0-52.0); Hemoglobin 9.6 g/dL (14.0-18.0); Mean Corpuscular HGB CONC 32.7 g/dL (32.0-36.0); Mean Corpuscular Volume 85.7 fL (78.0-98.0); Mean Platelet Volume 9.2 fL (7.4-10.4); Platelet Count 467 10x3/uL (130-400); RBC Distribution Width 14.3 % (11.5-14.5); Red Blood Cell (RBC) Count 3.43 mill/uL (4.70-6.10)
[2024-02-29 04:46] LABS: Anion Gap 12 mmol/L (10-20); BUN (Urea Nitrogen) 19 mg/dL (8.9-20.6); Calc. Creatinine Clearance 69 mL/min (70-130); Calcium 8.8 mg/dL (7.8-10.44); Carbon Dioxide 18 mmol/L (22-29); Chloride 114 mmol/L (98-107); Estimated GFR 75; Glucose 84 mg/dL (70-105); Sodium 139 mmol/L (136-145)
[2024-02-29] MEDS: fentaNYL 50 mcg/mL 1 mL Vial SLOW IVP SCH (09:40)
[2024-02-29 10:18] LABS: Amphetamine Not Detected (NotDetected); Barbiturates Screen Not Detected (NotDetected); Benzodiazepine Screen Not Detected (NotDetected); Cocaine Metabolite Screen Detected (NotDetected); Methadone Not Detected (NotDetected); Methamphetamine Not Detected (NotDetected); Opiate Screen Detected (NotDetected); Oxycodone Screen Not Detected (NotDetected); Phencyclidine (PCP) Not Detected (NotDetected); THC/Cannabinoid Screen Not Detected (NotDetected); Tricyclic Screen Not Detected (NotDetected)
[2024-02-29] MEDS: Ondansetron ODT 4 MG TAB PO PRN (20:25)
[2024-03-01] MEDS: chlorproMAZINE HCl 25 MG in Sodium Chloride 0.9% 50 ML IVPB SCH (00:07)
[2024-03-01 05:16] LABS: #Basophils 0.06 10x3/uL (0.0-0.2); %Basophils 0.7 % (0.0-1.0); %Eosinophils 4.6 % (0.0-10.0); %Lymphocytes 51.4 % (21.0-51.0); %Monocytes 6.9 % (0.0-10.0); %Neutrophils 36.3 % (42.0-75.0); Hematocrit 27.5 % (42.0-52.0); Mean Corpuscular HGB CONC 32.7 g/dL (32.0-36.0); Mean Corpuscular Volume 85.4 fL (78.0-98.0); Mean Platelet Volume 9.1 fL (7.4-10.4); Platelet Count 457 10x3/uL (130-400); RBC Distribution Width 14.2 % (11.5-14.5); Red Blood Cell (RBC) Count 3.22 mill/uL (4.70-6.10)
[2024-03-01 05:31] LABS: Calc. Creatinine Clearance 56 mL/min (70-130); Estimated GFR 59
[2024-03-01 05:32] LABS: Anion Gap 10 mmol/L (10-20); BUN (Urea Nitrogen) 19 mg/dL (8.9-20.6); Calcium 8.3 mg/dL (7.8-10.44); Carbon Dioxide 21 mmol/L (22-29); Chloride 111 mmol/L (98-107); Glucose 62 mg/dL (70-105); Potassium 4.4 mmol/L (3.5-5.1); Sodium 138 mmol/L (136-145)
[2024-03-01] MEDS: Lactated Ringer's 1,000 ML IV SCH (10:56)
[2024-03-01] MEDS: hydrOXYzine 25 MG TAB PO SCH (23:24)
[2024-03-02 05:23] LABS: #Basophils 0.04 10x3/uL (0.0-0.2); %Basophils 0.5 % (0.0-1.0); %Eosinophils 4.5 % (0.0-10.0); %Lymphocytes 39.8 % (21.0-51.0); %Monocytes 8.7 % (0.0-10.0); %Neutrophils 46.2 % (42.0-75.0); Hematocrit 27.6 % (42.0-52.0); Hemoglobin 8.9 g/dL (14.0-18.0); Mean Corpuscular HGB CONC 32.2 g/dL (32.0-36.0); Mean Corpuscular Hemoglobin 28.2 pg (27.0-31.0); Mean Corpuscular Volume 87.3 fL (78.0-98.0); Mean Platelet Volume 9.2 fL (7.4-10.4); Platelet Count 462 10x3/uL (130-400); RBC Distribution Width 14.3 % (11.5-14.5); Red Blood Cell (RBC) Count 3.16 mill/uL (4.70-6.10)
[2024-03-02 05:46] LABS: Anion Gap 9 mmol/L (10-20); BUN (Urea Nitrogen) 18 mg/dL (8.9-20.6); Calc. Creatinine Clearance 60 mL/min (70-130); Calcium 8.7 mg/dL (7.8-10.44); Carbon Dioxide 24 mmol/L (22-29); Chloride 109 mmol/L (98-107); Estimated GFR 63; Glucose 83 mg/dL (70-105); Potassium 4.4 mmol/L (3.5-5.1); Sodium 138 mmol/L (136-145)
[2024-03-02] MEDS: hydrALAZINE 20 MG/ML VIAL SLOW IVP PRN (17:09)
[2024-03-03 05:19] LABS: #Basophils 0.04 10x3/uL (0.0-0.2); %Basophils 0.5 % (0.0-1.0); %Eosinophils 6.1 % (0.0-10.0); %Lymphocytes 50.8 % (21.0-51.0); %Monocytes 8.4 % (0.0-10.0); Hematocrit 27.7 % (42.0-52.0); Hemoglobin 8.9 g/dL (14.0-18.0); Mean Corpuscular HGB CONC 32.1 g/dL (32.0-36.0); Mean Corpuscular Volume 87.1 fL (78.0-98.0); Mean Platelet Volume 9.6 fL (7.4-10.4); Platelet Count 482 10x3/uL (130-400); RBC Distribution Width 14.6 % (11.5-14.5); Red Blood Cell (RBC) Count 3.18 mill/uL (4.70-6.10)
[2024-03-03 05:45] LABS: Anion Gap 10 mmol/L (10-20); BUN (Urea Nitrogen) 16 mg/dL (8.9-20.6); Calc. Creatinine Clearance 63 mL/min (70-130); Calcium 8.5 mg/dL (7.8-10.44); Carbon Dioxide 22 mmol/L (22-29); Chloride 108 mmol/L (98-107); Estimated GFR 66; Glucose 114 mg/dL (70-105); Potassium 4.4 mmol/L (3.5-5.1); Sodium 136 mmol/L (136-145)
[2024-03-03] MEDS: Lisinopril 20 MG TAB PO SCH (09:06)
[2024-03-03] MEDS: Amlodipine 5 MG TAB PO SCH (09:06)
[2024-03-04 03:55] LABS: #Basophils 0.05 10x3/uL (0.0-0.2); %Basophils 0.6 % (0.0-1.0); %Eosinophils 5.5 % (0.0-10.0); %Lymphocytes 43.5 % (21.0-51.0); %Monocytes 10.5 % (0.0-10.0); %Neutrophils 39.6 % (42.0-75.0); Hematocrit 26.3 % (42.0-52.0); Hemoglobin 8.2 g/dL (14.0-18.0); Mean Corpuscular HGB CONC 31.2 g/dL (32.0-36.0); Mean Corpuscular Hemoglobin 27.9 pg (27.0-31.0); Mean Corpuscular Volume 89.5 fL (78.0-98.0); Mean Platelet Volume 9.1 fL (7.4-10.4); Platelet Count 437 10x3/uL (130-400); RBC Distribution Width 14.5 % (11.5-14.5); Red Blood Cell (RBC) Count 2.94 mill/uL (4.70-6.10)
[2024-03-04 04:35] LABS: Anion Gap 11 mmol/L (10-20); BUN (Urea Nitrogen) 20 mg/dL (8.9-20.6); Calc. Creatinine Clearance 48 mL/min (70-130); Calcium 8.3 mg/dL (7.8-10.44); Carbon Dioxide 24 mmol/L (22-29); Chloride 110 mmol/L (98-107); Estimated GFR 48; Glucose 129 mg/dL (70-105); Potassium 4.6 mmol/L (3.5-5.1); Sodium 140 mmol/L (136-145)
[2024-03-04] MEDS: Amlodipine 5 MG TAB PO SCH (09:40)
[2024-03-04] MEDS: hydrALAZINE 25 MG TAB PO SCH (09:41)
[2024-03-05 05:32] LABS: #Basophils 0.04 10x3/uL (0.0-0.2); %Basophils 0.5 % (0.0-1.0); %Eosinophils 5.2 % (0.0-10.0); %Lymphocytes 43.5 % (21.0-51.0); %Monocytes 9.8 % (0.0-10.0); %Neutrophils 40.7 % (42.0-75.0); Hemoglobin 8.1 g/dL (14.0-18.0); Mean Corpuscular HGB CONC 32.4 g/dL (32.0-36.0); Mean Corpuscular Hemoglobin 28.4 pg (27.0-31.0); Mean Corpuscular Volume 87.7 fL (78.0-98.0); Mean Platelet Volume 9.6 fL (7.4-10.4); Platelet Count 447 10x3/uL (130-400); RBC Distribution Width 14.5 % (11.5-14.5); Red Blood Cell (RBC) Count 2.85 mill/uL (4.70-6.10)
[2024-03-05 05:53] LABS: Anion Gap 13 mmol/L (10-20); BUN (Urea Nitrogen) 24 mg/dL (8.9-20.6); Calc. Creatinine Clearance 57 mL/min (70-130); Calcium 8.1 mg/dL (7.8-10.44); Carbon Dioxide 22 mmol/L (22-29); Chloride 105 mmol/L (98-107); Estimated GFR 59; Glucose 227 mg/dL (70-105); Potassium 4.2 mmol/L (3.5-5.1); Sodium 136 mmol/L (136-145)
[2024-03-05] MEDS: hydrALAZINE 25 MG TAB PO SCH (09:26)
[2024-03-05] MEDS: Temazepam 15 MG CAP PO PRN (22:48)
[2024-03-06 04:50] LABS: #Basophils 0.03 10x3/uL (0.0-0.2); %Basophils 0.4 % (0.0-1.0); %Eosinophils 5.2 % (0.0-10.0); %Lymphocytes 43.6 % (21.0-51.0); %Monocytes 11.3 % (0.0-10.0); %Neutrophils 39.1 % (42.0-75.0); Hematocrit 25.9 % (42.0-52.0); Hemoglobin 8.3 g/dL (14.0-18.0); Mean Corpuscular Volume 87.5 fL (78.0-98.0); Mean Platelet Volume 9.5 fL (7.4-10.4); Platelet Count 419 10x3/uL (130-400); RBC Distribution Width 14.9 % (11.5-14.5); Red Blood Cell (RBC) Count 2.96 mill/uL (4.70-6.10)
[2024-03-06 05:03] LABS: Anion Gap 9 mmol/L (10-20); BUN (Urea Nitrogen) 29 mg/dL (8.9-20.6); Calc. Creatinine Clearance 46 mL/min (70-130); Calcium 8.3 mg/dL (7.8-10.44); Carbon Dioxide 26 mmol/L (22-29); Chloride 110 mmol/L (98-107); Estimated GFR 46; Glucose 144 mg/dL (70-105); Potassium 4.4 mmol/L (3.5-5.1); Sodium 141 mmol/L (136-145)
[2024-03-06] MEDS: hydrALAZINE 25 MG TAB PO SCH (09:43)
[2024-03-07 08:17] LABS: #Basophils 0.05 10x3/uL (0.0-0.2); %Basophils 0.6 % (0.0-1.0); %Eosinophils 4.6 % (0.0-10.0); %Lymphocytes 40.3 % (21.0-51.0); %Monocytes 11.8 % (0.0-10.0); %Neutrophils 42.3 % (42.0-75.0); Hematocrit 26.2 % (42.0-52.0); Hemoglobin 8.3 g/dL (14.0-18.0); Mean Corpuscular HGB CONC 31.7 g/dL (32.0-36.0); Mean Corpuscular Hemoglobin 28.7 pg (27.0-31.0); Mean Corpuscular Volume 90.7 fL (78.0-98.0); Mean Platelet Volume 10.1 fL (7.4-10.4); Platelet Count 422 10x3/uL (130-400); Red Blood Cell (RBC) Count 2.89 mill/uL (4.70-6.10)
[2024-03-07 08:29] LABS: Anion Gap 12 mmol/L (10-20); BUN (Urea Nitrogen) 46 mg/dL (8.9-20.6); Calc. Creatinine Clearance 53 mL/min (70-130); Calcium 8.4 mg/dL (7.8-10.44); Carbon Dioxide 23 mmol/L (22-29); Chloride 107 mmol/L (98-107); Estimated GFR 54; Glucose 129 mg/dL (70-105); Potassium 3.7 mmol/L (3.5-5.1); Sodium 138 mmol/L (136-145)
[2024-03-07] MEDS: Temazepam 15 MG CAP PO SCH (20:12)
[2024-03-08] MEDS ORDERED: Lidocaine 1% PF 5 ML VIAL ONE (14:04)
[2024-03-08] MEDS ORDERED: Sodium Bicarbonate 2.5 MEQ/5 ML SDV ONE (14:04)
[2024-03-08 14:31] VITALS: BP 138/81; TEMP 97.7
== END 2024-03-08 14:39 | DRG 854 ==
LOC: SUATTDRO 18:26 → ERS 18:26 → MSONC 20:40
PROVIDERS: ADMIT Family Medicine; ATTEND Family Medicine
PROC: 0LB60ZZ Excision of Left Lower Arm and Wrist Tendon, Open Approach (ICD-10-PCS; principal; 2024-02-24)
PROC: 01Q60ZZ Repair Radial Nerve, Open Approach (ICD-10-PCS; 2024-02-24)
PROC: 3E033XZ Introduction of Vasopressor into Peripheral Vein, Percutaneous Approach (ICD-10-PCS; 2024-02-24)
PROC: 0LB60ZZ Excision of Left Lower Arm and Wrist Tendon, Open Approach (ICD-10-PCS; 2024-02-28)
PROC: 02HV33Z Insertion of Infusion Device into Superior Vena Cava, Percutaneous Approach (ICD-10-PCS; 2024-03-08)
PROC: B518ZZA Fluoroscopy of Superior Vena Cava, Guidance (ICD-10-PCS; 2024-03-08)
DX: A41.9 Sepsis, unspecified organism (principal); E87.20 Acidosis, unspecified; L02.414 Cutaneous abscess of left upper limb; N17.9 Acute kidney failure, unspecified; I12.9 Hypertensive chronic kidney disease with stage 1 through stage 4 chronic kidney disease, or unspecified chronic kidney disease; E87.5 Hyperkalemia; M65.122 Other infective (teno)synovitis, left elbow; E10.65 Type 1 diabetes mellitus with hyperglycemia; N18.30 Chronic kidney disease, stage 3 unspecified; E10.22 Type 1 diabetes mellitus with diabetic chronic kidney disease; Z87.891 Personal history of nicotine dependence; Z91.148 Patient's other noncompliance with medication regimen for other reason; Z89.421 Acquired absence of other right toe(s)
CPT/HCPCS: 36415; 36416; 36573; 80048; 80053; 80202; 80306; 81001; 82010; 83036; 83605; 83690; 83735; 84100; 84443; 85025; 86141; 87040; 87070; 87077; 87102; 87116; 87186; 87205; 87206; 88304; 89060; 93005; 93010; 96374; 96375; 97139; C1751; C9363-KX-JC; J0360; J0665; J1100; J1644; J1815; J1885; J2175; J2250; J2405; J2550; J2704; J3010; J3230; J3370; J3475; J7030; J7120; Q0162

== ENCOUNTER 2024-03-18 09:49 | Emergency (ER) | payer MEDICARE | END 2024-03-18 13:00 | disposition home or self-care (01) | LOC: ERS 09:49 | DX: J98.4 Other disorders of lung (principal); E11.9 Type 2 diabetes mellitus without complications; Z87.891 Personal history of nicotine dependence | CPT/HCPCS: 71045; 93005 ==

== ENCOUNTER 2024-03-23 15:40 | Emergency (ER) | payer MEDICARE ==
[2024-03-23 16:26] LABS: #Basophils Less than 0.03 10x3/uL (0.0-0.2); %Basophils 0.3 % (0.0-1.0); %Eosinophils 2.1 % (0.0-10.0); %Lymphocytes 23.9 % (21.0-51.0); %Monocytes 9.9 % (0.0-10.0); %Neutrophils 63.5 % (42.0-75.0); Hematocrit 26.2 % (42.0-52.0); Hemoglobin 8.6 g/dL (14.0-18.0); Mean Corpuscular HGB CONC 32.8 g/dL (32.0-36.0); Mean Corpuscular Hemoglobin 28.4 pg (27.0-31.0); Mean Corpuscular Volume 86.5 fL (78.0-98.0); Mean Platelet Volume 10.6 fL (7.4-10.4); Platelet Count 324 10x3/uL (130-400); RBC Distribution Width 14.6 % (11.5-14.5); Red Blood Cell (RBC) Count 3.03 mill/uL (4.70-6.10)
[2024-03-23 16:47] LABS: ALT (SGPT) Less than 7 U/L (Less than 45); AST (SGOT) 26 U/L (11-34); Albumin 2.9 g/dL (3.1-4.5); Alkaline Phosphatase 225 U/L (40-110); Anion Gap 12 mmol/L (10-20); BUN (Urea Nitrogen) 42 mg/dL (8.9-20.6); Bilirubin, Total 0.2 mg/dL (0.3-1.2); Calc. Creatinine Clearance 0 mL/min (70-130); Calcium 8.2 mg/dL (7.8-10.44); Carbon Dioxide 17 mmol/L (22-29); Chloride 111 mmol/L (98-107); Estimated GFR 43; Globulin 4.1 g/dL (2.4-3.5); Glucose 121 mg/dL (70-105); Potassium 3.9 mmol/L (3.5-5.1); Sodium 136 mmol/L (136-145)
[2024-03-23 16:51] LABS: Troponin I 0.012 ng/mL (< 0.028)
== END 2024-03-23 18:35 | disposition home or self-care (01) ==
LOC: ERS 15:40
DX: M79.604 Pain in right leg (principal); R60.9 Edema, unspecified; E11.9 Type 2 diabetes mellitus without complications; Z87.891 Personal history of nicotine dependence; Z79.4 Long term (current) use of insulin
CPT/HCPCS: 36415; 71045; 80053; 83880; 84484; 85025; 87428; 93005

== ENCOUNTER 2024-03-30 14:54 | Outpatient (CLI) | payer MEDICARE ==
[2024-03-30 15:45] LABS: #Basophils 0.04 10x3/uL (0.0-0.2); %Basophils 0.6 % (0.0-1.0); %Eosinophils 4.7 % (0.0-10.0); %Lymphocytes 42.9 % (21.0-51.0); %Monocytes 8.4 % (0.0-10.0); %Neutrophils 43.1 % (42.0-75.0); Hematocrit 28.1 % (42.0-52.0); Hemoglobin 9.3 g/dL (14.0-18.0); Mean Corpuscular HGB CONC 33.1 g/dL (32.0-36.0); Mean Corpuscular Volume 84.6 fL (78.0-98.0); Mean Platelet Volume 9.7 fL (7.4-10.4); Platelet Count 419 10x3/uL (130-400); RBC Distribution Width 14.4 % (11.5-14.5); Red Blood Cell (RBC) Count 3.32 mill/uL (4.70-6.10)
[2024-03-30 16:06] LABS: Anion Gap 15 mmol/L (10-20); BUN (Urea Nitrogen) 30 mg/dL (8.9-20.6); Calc. Creatinine Clearance 0 mL/min (70-130); Calcium 8.5 mg/dL (7.8-10.44); Carbon Dioxide 19 mmol/L (22-29); Chloride 113 mmol/L (98-107); Estimated GFR 51; Glucose 117 mg/dL (70-105); Potassium 3.9 mmol/L (3.5-5.1); Sodium 143 mmol/L (136-145)
[2024-03-30 16:07] LABS: CRP,High Sensitivity (Inhouse) 0.53 mg/dL (< or = 0.5)
== END 2024-03-30 14:55 | disposition home or self-care (01) ==
LOC: LABBT 14:54
PROVIDERS: ATTEND Orthopaedic Surgery Hand Surgery
DX: Z01.812 Encounter for preprocedural laboratory examination (principal); M65.10 Other infective (teno)synovitis, unspecified site
CPT/HCPCS: 80048; 85025; 86141

== ENCOUNTER 2024-04-01 18:29 | Emergency (ER) | payer MEDICARE ==
[2024-04-01 19:01] LABS: #Basophils 0.09 10x3/uL (0.0-0.2); %Basophils 0.7 % (0.0-1.0); %Eosinophils 3.7 % (0.0-10.0); %Lymphocytes 50.8 % (21.0-51.0); %Monocytes 7.4 % (0.0-10.0); %Neutrophils 37.2 % (42.0-75.0); Hematocrit 30.5 % (42.0-52.0); Mean Corpuscular HGB CONC 32.8 g/dL (32.0-36.0); Mean Corpuscular Hemoglobin 27.4 pg (27.0-31.0); Mean Corpuscular Volume 83.6 fL (78.0-98.0); Mean Platelet Volume 9.9 fL (7.4-10.4); Platelet Count 505 10x3/uL (130-400); RBC Distribution Width 14.2 % (11.5-14.5); Red Blood Cell (RBC) Count 3.65 mill/uL (4.70-6.10)
[2024-04-01 19:12] LABS: Bacteria/HPF None Seen HPF (None Seen); Bilirubin Negative (Negative); Blood, Urine Trace (Negative); CAUTI Indications for Culture Pelvic or flank pain; Clarity Clear (Clear); Glucose, Urine (Dipstick) Normal (Negative); Ketone, Urine Negative (Negative); Leukocyte Negative Leu/uL (Negative); Nitrite Negative (Negative); Protein, Urine (Dipstick) 200 mg/dL (Neg-Trace); RBC/HPF 0-3 HPF (0-3); Squamous Epithelial 0-3 HPF (0-3); Urobilinogen Normal mg/dL (Less than 2); WBC/HPF 0-3 HPF (0-3)
[2024-04-01 19:13] LABS: Urine Culture Reflex No No
[2024-04-01 19:19] LABS: Amphetamine Not Detected (NotDetected); Barbiturates Screen Not Detected (NotDetected); Benzodiazepine Screen Not Detected (NotDetected); Cocaine Metabolite Screen Not Detected (NotDetected); Methadone Not Detected (NotDetected); Methamphetamine Not Detected (NotDetected); Opiate Screen Detected (NotDetected); Oxycodone Screen Not Detected (NotDetected); Phencyclidine (PCP) Not Detected (NotDetected); THC/Cannabinoid Screen Not Detected (NotDetected); Tricyclic Screen Not Detected (NotDetected)
[2024-04-01 19:19] LABS: Acetaminophen Less than 10 mcg/mL (Less than 10); Alcohol Less than 10.0 mg/dL (Less than 10); Salicylate Less than 8.0 mg/dL (Less than 8.0)
[2024-04-01 19:20] LABS: ALT (SGPT) 24 U/L (Less than 45); AST (SGOT) 57 U/L (11-34); Albumin 3.8 g/dL (3.1-4.5); Alkaline Phosphatase 238 U/L (40-110); Anion Gap 16 mmol/L (10-20); BUN (Urea Nitrogen) 31 mg/dL (8.9-20.6); Bilirubin, Total 0.2 mg/dL (0.3-1.2); Calc. Creatinine Clearance 0 mL/min (70-130); Calcium 9.1 mg/dL (7.8-10.44); Carbon Dioxide 15 mmol/L (22-29); Chloride 113 mmol/L (98-107); Estimated GFR 34; Globulin 5.8 g/dL (2.4-3.5); Glucose 20 mg/dL (70-105); Potassium 3.5 mmol/L (3.5-5.1); Protein, Total 9.6 g/dL (6.0-8.3); Sodium 140 mmol/L (136-145)
== END 2024-04-01 21:54 | disposition home or self-care (01) ==
LOC: ERS 18:29
DX: T38.3X1A Poisoning by insulin and oral hypoglycemic [antidiabetic] drugs, accidental (unintentional), initial encounter (principal); E11.649 Type 2 diabetes mellitus with hypoglycemia without coma; R41.0 Disorientation, unspecified
CPT/HCPCS: 36415; 36416; 80053; 80306; 80307; 81001; 83605; 85025; 93005; 94760; 96361; 96365

== ENCOUNTER 2024-04-02 13:36 | Inpatient (IN) | payer MEDICARE ==
[2024-04-02 15:13] LABS: #Basophils 0.06 10x3/uL (0.0-0.2); %Basophils 0.8 % (0.0-1.0); %Eosinophils 3.2 % (0.0-10.0); %Lymphocytes 35.2 % (21.0-51.0); %Monocytes 5.6 % (0.0-10.0); %Neutrophils 54.9 % (42.0-75.0); Hematocrit 29.9 % (42.0-52.0); Hemoglobin 9.8 g/dL (14.0-18.0); Mean Corpuscular HGB CONC 32.8 g/dL (32.0-36.0); Mean Corpuscular Hemoglobin 27.8 pg (27.0-31.0); Mean Corpuscular Volume 84.9 fL (78.0-98.0); Mean Platelet Volume 9.7 fL (7.4-10.4); Platelet Count 421 10x3/uL (130-400); RBC Distribution Width 14.6 % (11.5-14.5); Red Blood Cell (RBC) Count 3.52 mill/uL (4.70-6.10)
[2024-04-02 15:34] LABS: ALT (SGPT) 21 U/L (Less than 45); AST (SGOT) 51 U/L (11-34); Albumin 3.3 g/dL (3.1-4.5); Alkaline Phosphatase 240 U/L (40-110); Anion Gap 14 mmol/L (10-20); BUN (Urea Nitrogen) 31 mg/dL (8.9-20.6); Bilirubin, Total 0.2 mg/dL (0.3-1.2); Calc. Creatinine Clearance 0 mL/min (70-130); Calcium 8.6 mg/dL (7.8-10.44); Carbon Dioxide 17 mmol/L (22-29); Chloride 112 mmol/L (98-107); Estimated GFR 35; Globulin 5.2 g/dL (2.4-3.5); Glucose 213 mg/dL (70-105); Potassium 4.4 mmol/L (3.5-5.1); Protein, Total 8.5 g/dL (6.0-8.3); Sodium 139 mmol/L (136-145)
[2024-04-02] MEDS ORDERED: Acetaminophen 325 MG TAB PO PRN (17:06)
[2024-04-02] MEDS ORDERED: Glucagon 1 MG/ML KIT IM PRN (17:06)
[2024-04-02] MEDS ORDERED: Dextrose 50% Abboject 50 ML SYRINGE SLOW IVP PRN (17:06)
[2024-04-02] MEDS ORDERED: Dextrose 5% in Water 1,000 ML IV PRN (17:06)
[2024-04-02] MEDS ORDERED: Calcium Carbonate 500 MG ChewTAB PO PRN (17:06)
[2024-04-02] MEDS ORDERED: Senokot S 8.6-50 MG TAB PO PRN (17:06)
[2024-04-02] MEDS: Clindamycin/D5W 900 MG in Premix 1 BAG IVPB SCH (18:26)
[2024-04-02] MEDS: Sodium Chloride 0.9% 1,000 ML IV SCH (18:27)
[2024-04-02 19:23] VITALS: BMI 20.2
[2024-04-02] MEDS: Sodium Bicarbonate Tab 325 MG TAB PO SCH (19:30)
[2024-04-02 22:44] LABS: Bacteria/HPF None Seen HPF (None Seen); Bilirubin Negative (Negative); Blood, Urine Trace (Negative); Clarity Clear (Clear); Glucose, Urine (Dipstick) 30 mg/dL (Negative); Ketone, Urine Negative (Negative); Leukocyte Negative Leu/uL (Negative); Nitrite Negative (Negative); Protein, Urine (Dipstick) 200 mg/dL (Neg-Trace); RBC/HPF 0-3 HPF (0-3); Squamous Epithelial None Seen HPF (0-3); Urobilinogen Normal mg/dL (Less than 2); WBC/HPF 0-3 HPF (0-3)
[2024-04-03] MEDS: Vancomycin 1.5 GRAM/300 ML BAG 1.5 GM in Premix 1 BAG IVPB SCH (00:17)
[2024-04-03 06:14] LABS: #Basophils 0.05 10x3/uL (0.0-0.2); %Basophils 0.6 % (0.0-1.0); %Eosinophils 5.1 % (0.0-10.0); %Lymphocytes 30.9 % (21.0-51.0); %Monocytes 10.3 % (0.0-10.0); %Neutrophils 52.8 % (42.0-75.0); Hematocrit 27.8 % (42.0-52.0); Hemoglobin 9.2 g/dL (14.0-18.0); Mean Corpuscular HGB CONC 33.1 g/dL (32.0-36.0); Mean Corpuscular Volume 84.8 fL (78.0-98.0); Mean Platelet Volume 10.1 fL (7.4-10.4); Platelet Count 378 10x3/uL (130-400); RBC Distribution Width 14.6 % (11.5-14.5); Red Blood Cell (RBC) Count 3.28 mill/uL (4.70-6.10)
[2024-04-03 06:25] LABS: Vancomycin, Random 24.9 ug/mL (See Comment)
[2024-04-03 06:30] LABS: Anion Gap 12 mmol/L (10-20); BUN (Urea Nitrogen) 24 mg/dL (8.9-20.6); Calc. Creatinine Clearance 46 mL/min (70-130); Carbon Dioxide 17 mmol/L (22-29); Chloride 115 mmol/L (98-107); Estimated GFR 44; Glucose 112 mg/dL (70-105); Potassium 4.1 mmol/L (3.5-5.1); Sodium 140 mmol/L (136-145)
[2024-04-03] MEDS: hydrALAZINE 25 MG TAB PO SCH (08:13)
[2024-04-03] MEDS ORDERED: Vancomycin 1 GM in Premix 1 BAG IVPB SCH (09:00)
[2024-04-03] MEDS: Pantoprazole 40 MG VIAL IVP SCH (09:09)
[2024-04-03] MEDS: hydrALAZINE 20 MG/ML VIAL SLOW IVP PRN (10:12)
[2024-04-03] MEDS: Vancomycin HCl 500 MG in Sodium Chloride 0.9% 100 ML IVPB SCH (10:12)
[2024-04-03] MEDS ORDERED: Ondansetron PF 4 MG/2 ML Vial IVP PRN (10:30)
[2024-04-03] MEDS: Ondansetron PF 4 MG/2 ML Vial IVP SCH (10:55)
[2024-04-03] MEDS: Insulin Regular, Human 100 UNIT/ML 10 ML VIAL SC PRN (17:33)
[2024-04-03] MEDS: Vancomycin 1 GM in Premix 1 BAG IVPB SCH (20:51)
[2024-04-04 05:58] LABS: #Basophils 0.06 10x3/uL (0.0-0.2); %Basophils 0.7 % (0.0-1.0); %Eosinophils 5.3 % (0.0-10.0); %Lymphocytes 40.1 % (21.0-51.0); %Monocytes 8.7 % (0.0-10.0); %Neutrophils 45.1 % (42.0-75.0); Hematocrit 25.9 % (42.0-52.0); Hemoglobin 8.4 g/dL (14.0-18.0); Mean Corpuscular HGB CONC 32.4 g/dL (32.0-36.0); Mean Corpuscular Hemoglobin 27.8 pg (27.0-31.0); Mean Corpuscular Volume 85.8 fL (78.0-98.0); Mean Platelet Volume 10.1 fL (7.4-10.4); Platelet Count 320 10x3/uL (130-400); RBC Distribution Width 14.6 % (11.5-14.5); Red Blood Cell (RBC) Count 3.02 mill/uL (4.70-6.10)
[2024-04-04 06:29] LABS: ALT (SGPT) 22 U/L (Less than 45); AST (SGOT) 55 U/L (11-34); Albumin 2.6 g/dL (3.1-4.5); Alkaline Phosphatase 204 U/L (40-110); Anion Gap 10 mmol/L (10-20); BUN (Urea Nitrogen) 20 mg/dL (8.9-20.6); Bilirubin, Total 0.1 mg/dL (0.3-1.2); Calc. Creatinine Clearance 43 mL/min (70-130); Calcium 7.8 mg/dL (7.8-10.44); Carbon Dioxide 17 mmol/L (22-29); Chloride 117 mmol/L (98-107); Estimated GFR 40; Globulin 4.2 g/dL (2.4-3.5); Glucose 114 mg/dL (70-105); Potassium 4.1 mmol/L (3.5-5.1); Protein, Total 6.8 g/dL (6.0-8.3); Sodium 140 mmol/L (136-145)
[2024-04-04] MEDS: Pantoprazole 40 MG VIAL IVP SCH (08:43)
[2024-04-04] MEDS ORDERED: Bupivacaine PF 0.5% 30 ML VIAL ONE (12:49)
[2024-04-04] MEDS ORDERED: Bacitracin Zinc Ointment 30 gm TUBE ONE (12:59)
[2024-04-04] MEDS ORDERED: Mineral Oil Sterile 10 ML VIAL ONE (12:59)
[2024-04-04] MEDS ORDERED: Thrombin 5000 UNITS/5 ML VIAL ONE (12:59)
[2024-04-04] MEDS ORDERED: fentaNYL PF 100 MCG/2 ML SYRINGE ONE (13:59)
[2024-04-04] MEDS ORDERED: CEFAZOLIN 2 GM VIAL ONE (13:59)
[2024-04-04] MEDS ORDERED: Midazolam HCl 2 mg/2 ml Vial ONE (14:00)
[2024-04-04] MEDS ORDERED: PROPOFOL 20 ML ONE (14:00)
[2024-04-04] MEDS ORDERED: Ondansetron PF 4 MG/2 ML Vial ONE (14:25)
[2024-04-04] MEDS ORDERED: Dexamethasone 20 MG/5 ML VIAL ONE (14:25)
[2024-04-04] MEDS ORDERED: Lidocaine 1% PF 5 ML VIAL ONE (14:25)
[2024-04-04] MEDS ORDERED: KETAMINE 100 MG/ML (5ML VIAL) ONE (14:30)
[2024-04-04] MEDS ORDERED: Morphine 4 MG/ML VIAL SLOW IVP PRN (18:35)
[2024-04-04] MEDS: Acetaminophen/Codeine 30-300mg Tablet PO PRN (21:07)
[2024-04-05 06:20] LABS: Anion Gap 11 mmol/L (10-20); BUN (Urea Nitrogen) 20 mg/dL (8.9-20.6); Calc. Creatinine Clearance 49 mL/min (70-130); Calcium 7.6 mg/dL (7.8-10.44); Carbon Dioxide 16 mmol/L (22-29); Chloride 112 mmol/L (98-107); Estimated GFR 47; Glucose 225 mg/dL (70-105); Sodium 135 mmol/L (136-145); Vancomycin, Random 25.6 ug/mL (See Comment)
[2024-04-05 07:41] VITALS: TEMP 98.2
[2024-04-05] MEDS: HYDROcodone/Acetaminophen 7.5/325 mg Tablet PO PRN (10:41)
[2024-04-05 12:23] VITALS: BP 160/87
== END 2024-04-05 12:25 | disposition home or self-care (01) | DRG 464 ==
LOC: ERS 13:36 → T4-B 17:06 → OBSVTOIN 04-03 08:51
PROVIDERS: ADMIT Internal Medicine; ATTEND Family Medicine
PROC: 0HXGXZZ Transfer Left Hand Skin, External Approach (ICD-10-PCS; principal; 2024-04-04)
DX: M65.942 Unspecified synovitis and tenosynovitis, left hand (principal); E87.20 Acidosis, unspecified; N17.9 Acute kidney failure, unspecified; Z88.8 Allergy status to other drugs, medicaments and biological substances; Z79.4 Long term (current) use of insulin; N18.30 Chronic kidney disease, stage 3 unspecified; I12.9 Hypertensive chronic kidney disease with stage 1 through stage 4 chronic kidney disease, or unspecified chronic kidney disease; E10.22 Type 1 diabetes mellitus with diabetic chronic kidney disease; Z98.890 Other specified postprocedural states; Z87.891 Personal history of nicotine dependence; D63.1 Anemia in chronic kidney disease; T38.3X1A Poisoning by insulin and oral hypoglycemic [antidiabetic] drugs, accidental (unintentional), initial encounter; R41.0 Disorientation, unspecified; E10.649 Type 1 diabetes mellitus with hypoglycemia without coma
CPT/HCPCS: 36415; 36416; 80048; 80053; 80202; 80306; 80307; 81001; 83605; 85025; 93005; 94760; 96361; 96365; 96374; 96375; A6258; G0378; J0360; J0665; J1100; J1815; J2250; J2405; J2470; J2704; J3370; J3490; J7030